=== PATIENT | male | born 1965 | race Caucasian/White ===

== ENCOUNTER 2016-05-30 06:19 | Day surgery (SDC) | payer OTHER ==
--- NOTE | ~2016-05-30 | EGD ---
EGD REPORT [facility] [address] 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 Estimated blood loss: None. Procedure: Pre-Anesthesia Assessment: - ASA Grade Assessment: III - A patient with severe systemic disease. After obtaining informed consent, the endoscope was passed under direct vision. Throughout the procedure, the patient's blood pressure, pulse, and oxygen saturations were monitored continuously. The GIF [id number] was introduced through the mouth, and advanced to the second part of duodenum. The upper GI endoscopy was accomplished without difficulty. The patient tolerated the procedure well. Findings: The esophagus and gastroesophageal junction were examined with white light. Mccray's esophagus was present. Scattered islands of salmon-colored mucosa were present. The maximum longitudinal extent of these esophageal mucosal changes was 0.5 cm in length. Focal radiofrequency ablation of Mccray's esophagus was performed. With the endoscope in place, the position and extent of the Mccray's mucosa and the anatomic landmarks were noted. The endoscope was then removed from the patient. The Halo radiofrequency ablation catheter was attached to the tip of the endoscope. The endoscope with the attached radiofrequency ablation catheter was then passed transorally under direct vision into the esophagus and advanced to the areas of Mccray's mucosa. The areas included islands of Mccray's mucosa. The radiofrequency ablation catheter was placed in contact with the surface of the Mccray's mucosa under direct visualization and energy was applied twice at 12 J/cm2. Ablation was repeated in a likewise fashion to all visible Mccray's mucosa. The ablation zone was cleaned of coagulative debris. The ablation catheter and endoscope were then removed and the catheter was cleaned. The catheter and endoscope were reinserted into the esophagus. A second round of ablation was then performed. Energy was applied twice at 12 J/cm2 to retreat the areas of Mccray's epithelium that had been EGD REPORT [address] [place]. [address] NAME: CHRISTINA NEGRO : 63 STATUS : REG [facility] PAT#: [id number] AGE: 50 ADM/REG DATE : 05/30/16 MR#: [id number] REPORT SERV DATE: 05/30/16 DICTATED BY: SEB STEIN DATE: 05/30/16 REPORT STATUS : Draft TRANSCRIBED BY: [employer] DATE: 05/30/16 treated with the first series of ablation. The areas of the esophagus where Mccray's mucosa had been ablated were carefully examined. Estimated blood loss: none. The exam of the esophagus was otherwise normal. The stomach was normal. The cardia and gastric fundus were normal on retroflexion. The examined duodenum was normal. Impression: - Mccray's esophagus. Treated with radiofrequency ablation. - Normal stomach. - Normal examined duodenum. Recommendation: - Patient has a contact number available for emergencies. The signs and symptoms of potential delayed complications were discussed with the patient. Return to normal activities tomorrow. Written discharge instructions were provided to the patient. - Return to previous diet. - Continue present medications. - Repeat the upper endoscopy in 3 months for retreatment. Procedure Code(s): --- Professional --- 21962, Esophagogastroduodenoscopy, flexible, transoral; with ablation of tumor(s), polyp(s), or other lesion(s) (includes pre- and post-dilation and guide wire passage, when performed) Diagnosis Code(s): --- Professional --- K22.710, Mccray's esophagus with low grade dysplasia Z09, Encounter for follow-up examination after completed treatment for conditions other than malignant neoplasm CPT copyright 2013 [employer]. All rights reserved. The codes documented in this report are preliminary and upon shell grader review may be revised to meet current compliance requirements. SEB STEIN, 05/30/2016 8:04 AM Number of Addenda: 0 Note Initiated On: 05/30/2016 7:27 AM Scope Withdrawal Time 0 hours 0 minutes 0 seconds EGD REPORT [facility] [address] [address] NAME: CHRISTINA NEGRO : 63 STATUS : REG [facility] PAT#: [id number] AGE: 50 ADM/REG DATE : 05/30/16 MR#: [id number] REPORT SERV DATE: 05/30/16 DICTATED BY: SEB STEIN DATE: 05/30/16 REPORT STATUS : Draft TRANSCRIBED BY: [employer] DATE: 05/30/16 [address] [place] [id number]
[~2016-05-30 06:19] MED LIST: ATARAX50B PO; CELEXA40 MG PO; FLEX PO; KAPIDEX30 MG PO; KAPIDEX60 MG PO; KLONO2 PO; LOFIBRA134 MG PO; LOP50 PO; LORTAB 5 PO; METHATAB40 PO; MSCONT60 PO; NORCO1 TAB PO; PEPCID40 MG PO; PRILOSEC40 MG PO; PROAIR HFA INH; SYMBICORT 160/41 INH INH; WELLSR150 PO; ZOCOR20 PO
== END 2016-05-30 23:59 | disposition home or self-care (01) ==
LOC: DMU 06:19
PROVIDERS: Internal Medicine Gastroenterology
PROC: 0D558ZZ Destruction of Esophagus, Via Natural or Artificial Opening Endoscopic (ICD-10-PCS; principal; 2016-05-30 08:00)
DX: K22.710 Barrett's esophagus with low grade dysplasia (principal); I10 Essential (primary) hypertension; Z87.442 Personal history of urinary calculi; E78.00 Pure hypercholesterolemia, unspecified; G89.29 Other chronic pain; M54.9 Dorsalgia, unspecified; K21.9 Gastro-esophageal reflux disease without esophagitis; F17.210 Nicotine dependence, cigarettes, uncomplicated; F17.290 Nicotine dependence, other tobacco product, uncomplicated; Z79.891 Long term (current) use of opiate analgesic; Z09 Encounter for follow-up examination after completed treatment for conditions other than malignant neoplasm